=== PATIENT | female | born 1985 | race Two or more races ===

== ENCOUNTER 2022-04-27 07:37 | Day surgery (SDC) | payer OTHER ==
[~2022-04-27] VITALS: Ht 162.6 cm; Wt 90.3 kg
[~2022-04-27 07:37] MED LIST: MEGESTROL PO
== END 2022-04-27 18:35 | disposition home or self-care (01) ==
LOC: CIR.AMB 07:37
PROVIDERS: ATTEND Obstetrics & Gynecology
DX: N93.8 Other specified abnormal uterine and vaginal bleeding (principal); N85.00 Endometrial hyperplasia, unspecified; Z91.040 Latex allergy status; Z91.013 Allergy to seafood; Z20.822 Contact with and (suspected) exposure to COVID-19; E03.9 Hypothyroidism, unspecified